=== PATIENT | female | born 1960 | race Caucasian/White ===

== ENCOUNTER 2018-04-24 08:43 | Day surgery (SDC) | payer BC ==
[2018-04-24] VITALS (11 sets, daily range): BP systolic 109–135; BP diastolic 63–72; PULSE 57–74; RESP 10–18; Ht 157.5 cm; Wt 66.4 kg
[~2018-04-24] VITALS: Ht 157.5 cm; Wt 66.4 kg
[~2018-04-24 08:43] MED LIST: LACTATED RINGER'S 1,000 ML IV SCH; SEVOFLURANE 15 MIN ONE
[2018-04-24] MEDS ORDERED: LEVO88TA42 PO (09:47)
[2018-04-24] MEDS ORDERED: TRAM50TA PO (09:48)
--- NOTE | 2018-04-24 10:37 | PREAC ---
Date/Time of Note Date/Time of Note DATE: 04/24/18 TIME: 10:37 Anesthesia Eval and Record Evaluation Time Pre-Procedure Interview DATE: 04/24/18 TIME: 10:37 Age 57 Sex female NPO: 8 hrs Preoperative diagnosis d/c Planned procedure d/c Past Medical History Past Medical History: Includes Endo: Hypothyroid Surgery & Anesthesia Issues No known issue Meds Anticoagulation: No Beta Ambreen within 24 hr: No Reason Beta Ambreen not given: Pt. not on B-Ambreen Reported Medications Tramadol Hcl* (Ultram*) 50 Mg Tablet, 50 MG PO Q6H PRN for PAIN, TAB 04/24/18 Levothyroxine Sodium* (Levoxyl*) 88 Mcg Tablet, 88 MCG PO BEFORE BREAKFAST, #30 TAB 04/24/18 Current Medications Lactated Ringer's 1,000 ml @ 25 mls/hr Q24H IV ; Start 04/24/18 at 08:00 Meds reviewed: Yes Allergies Coded Allergies: No Known Allergy (Unverified , 04/24/18) Allergies Reviewed: Yes Labs/Studies Labs Reviewed: Reviewed by anesthesiologist Result Diagram: 04/24/18 0950 Laboratory Tests 04/24/18 09:50 Blood Bank Test 04/24/18 09:50 Blood Type A POSITIVE test: N/A Pre-procedure Exam Last vitals Vital Signs Date Temp Pulse Resp B/P (MAP) Pulse Ox O2 O2 Flow FiO2 Time Delivery Rate 04/24/18 97.6 70 18 135/63 99 Room Air 10:07 (87) Airway: Adequate mouth opening, Adequate thyromental dist Mallampati: Mallampati III Teeth: Normal Lung: Normal Heart: Normal ASA Physical Status ASA physical status: 2 Emergency: None Pre-operative Attestations Prior to commencing anesthesia and surgery, the patient was re-evaluated, there was verification of: *The patient's identity *The results of appropriate recent lab work and preoperative vital signs *The above evaluation not changing prior to induction *Anesthetic plan, risk benefits, alternative and complications discussed with patient/family; questions answered; patient/family understands, accepts and wishes to proceed. MATT MONZON DO Apr 24, 2018 10:37
[2018-04-24] MEDS ORDERED: PROPOFOL 20 ML ONE (10:40)
[2018-04-24] MEDS ORDERED: ETOMIDATE 20 MG INJ ONE (10:40)
[2018-04-24] MEDS ORDERED: LIDOCAINE 1% (MDV) 20 ML INJ ONE (10:40)
[2018-04-24] MEDS ORDERED: MIDAZOLAM 1 MG/ML 2 ML INJ ONE (10:40)
[2018-04-24] MEDS ORDERED: FENTAnyl 50 MCG/ML VIAL ONE (10:54)
[2018-04-24] MEDS ORDERED: ONDANSETRON 4 MG INJ ONE (10:55)
[2018-04-24] MEDS ORDERED: CEFAZOLIN 1 GM INJ ONE (10:55)
--- NOTE | 2018-04-24 11:38 | PAC ---
Date/Time of Note Date/Time of Note DATE: 04/24/18 TIME: 11:37 Post-Anesthesia Notes Post-Anesthesia Note Last documented vital signs Vital Signs Date Temp Pulse Resp B/P (MAP) Pulse Ox O2 O2 Flow FiO2 Time Delivery Rate 04/24/18 98 70 15 125/62 99 Room Air 1138 Activity: WNL Respiratory function: WNL Cardiovascular function: WNL Mental status: Baseline Pain reasonably controlled: Yes Hydration appropriate: Yes Nausea/Vomiting absent: Yes MATT MONZON DO Apr 24, 2018 11:38
--- NOTE | 2018-04-24 11:39 | SIPON ---
Date/Time of Note Date/Time of Note DATE: 04/24/18 TIME: 11:37 Operative Report Preoperative Diagnosis Postmenopausal bleeding Postoperative Diagnosis Same, cervical stenosis Operation/Procedure Performed Exam under anesthesia, ECC Surgeon Dianna Hinton MD medical practice assistant None Anesthesia: general Estimated blood loss: minimal Transfusion Required none Specimen ECC Grafts/Implants none Complications none DIANNA HINTON MD Apr 24, 2018 11:39
--- NOTE | 2018-04-24 11:51 | PREOPHP ---
DATE OF ADMISSION: 04/24/2018 HISTORY OF PRESENT ILLNESS: A 57-year-old female 5, para 3, AB 2, admitted with history of p ostmenopausal bleeding. PAST MEDICAL HISTORY: Hypothyroidism and arthritis. PAST SURGICAL HISTORY: section. ALLERGIES: No known allergies. FAMILY HISTORY: Noncontributory. PHYSICAL EXAMINATION: VITAL SIGNS: The patient is afebrile. Vital signs stable. HEAD, NECK AND CHEST: Within normal limits. ABDOMEN: Soft, nontender, nondistended. PELVIC: Normal. EXTREMITIES: Within normal limits. NEUROLOGIC: Within normal limits. IMPRESSION: Postmenopausal bleeding. PLAN: Dilation and curettage. Risks, benefits and alternatives of procedure were explained to the p atient. Patient said she understood and gave informed consent for the procedure. Dictated By: DIANNA HERNANDEZ/NO Conf#: [id number] DID#: [id number]
[2018-04-24] MEDS ORDERED: HYDROmorphONE 1 MG/5 ML IV SYRINGE IV PRN ×2 (12:00)
--- NOTE | 2018-04-24 12:00 | NUR ---
pacu notes: handoff report to pacu conveyor line battery charger for continuity of care.
--- NOTE | 2018-04-24 12:22 | OPR ---
DATE OF OPERATION: 04/24/2018 PREOPERATIVE DIAGNOSIS: Postmenopausal bleeding. POSTOPERATIVE DIAGNOSES: Postmenopausal bleeding and cervical stenosis. OPERATION PERFORMED: Examination under anesthesia, endocervical curettage. SURGEON: Dianna Balbuena MD ANESTHESIA: General. ANESTHESIOLOGIST: Jordan Jackman DO DESCRIPTION OF PROCEDURE: The patient was taken to the operating room, placed on the operating table in supine position. After adequate general anesthesia was given, the patient was placed in dorsal lithotomy position. A tenaculum was used to grasp the anterior lip of the cervix. Using Kevorkian curet, endocervical curettage was performed. This specimen was obtained and was sent to pathology. Next, the cervical os was noted to be severely stenosed and attempts were made to dilate the cervix; however due to cervical stenosis, the cervix could not to be dilated. All the instruments were removed. Adequate hemostasis was assured. The patient tolerated the procedure well. The patient was awakened from anesthesia and transferred to recovery room in stable condition. Estimated blood loss was minimal. All counts were correct. Dictated By: DIANNA HERNANDEZ/NO Conf#: [id number] DID#: [id number] MTDD
--- NOTE | 2018-04-24 12:42 | NUR ---
Pt was discharge home, no complains of pain, VS nyla. No s/s of bleeding. Pt tolerated food. All discharge instructions provided to pt and family. pt and family verbalize understanding and readiness for discharge.
== END 2018-04-24 12:47 | disposition home or self-care (01) ==
LOC: SDS 08:43
PROVIDERS: ATTEND Obstetrics & Gynecology
DX: N95.0 Postmenopausal bleeding (principal); E03.9 Hypothyroidism, unspecified
CPT/HCPCS: 58120; 71045; 80053; 85025; 86850; 86900; 86901; 88305; 93005; J0690; J1170; J2250; J3010; Z7610; J2405

== ENCOUNTER 2018-06-08 06:06 | Day surgery (SDC) | payer BC ==
[~2018-06-08] VITALS: Ht 154.9 cm; Wt 65.7 kg
[2018-06-08] VITALS (11 sets, daily range): BP systolic 118–139; BP diastolic 68–75; PULSE 60–69; RESP 18–24; Ht 154.9 cm; Wt 65.7 kg
[~2018-06-08 06:06] MED LIST changes: -LACTATED RINGER'S 1,000 ML IV SCH; +LEVO88TA42 PO; -SEVOFLURANE 15 MIN ONE; +TRAM50TA PO
[2018-06-08] MEDS ORDERED: CEFAZOLIN 2 GM/50 ML (PMX) 50 ML IVPB SCH (07:00)
[2018-06-08] MEDS ORDERED: SOD CHLORIDE 0.9% 1,000 ML IV SCH (07:00)
[2018-06-08] MEDS ORDERED: BUPIVACAINE 0.25% (MPF) 30 ML INJ ONE (07:37)
--- NOTE | 2018-06-08 08:05 | PREAC ---
Date/Time of Note Date/Time of Note DATE: 06/08/18 TIME: 08:03 Anesthesia Eval and Record Evaluation Time Pre-Procedure Interview DATE: 06/08/18 TIME: 08:03 Age 57 Sex female NPO: 8 hrs Preoperative diagnosis Cholelithiasis Planned procedure Lap Cholecystectomy Past Medical History Past Medical History: Includes Endo: Hypothyroid GI: Morbid obesity Surgery & Anesthesia Issues No known issue Meds Anticoagulation: No Beta Ambreen within 24 hr: No Reason Beta Ambreen not given: Pt. not on B-Ambreen Reported Medications Tramadol Hcl* (Ultram*) 50 Mg Tablet, 50 MG PO Q6H PRN for PAIN, TAB 04/24/18 Levothyroxine Sodium* (Levoxyl*) 88 Mcg Tablet, 88 MCG PO BEFORE BREAKFAST, #30 TAB 04/24/18 Current Medications Cefazolin Sodium/ Dextrose 50 ml @ 100 mls/hr OC IVPB ; Start 06/08/18 at 07:00 Sodium Chloride 1,000 ml @ 75 mls/hr [id number] IV ; Start 06/08/18 at 07:00 Meds reviewed: Yes Allergies Coded Allergies: No Known Allergy (Unverified , 06/08/18) Allergies Reviewed: Yes Labs/Studies Labs Reviewed: Reviewed by anesthesiologist test: Negative Studies: ECG Pre-procedure Exam Last vitals Vital Signs Date Temp Pulse Resp B/P (MAP) Pulse Ox O2 O2 Flow FiO2 Time Delivery Rate 06/08/18 98.1 68 18 118/71 98 Room Air 07:26 (87) Airway: Adequate mouth opening, Adequate thyromental dist Mallampati: Mallampati II Teeth: Normal Lung: Normal Heart: Normal ASA Physical Status ASA physical status: 2 Emergency: None Planned Anesthetic General/MAC: ETT Planned Pain Management Single shot nerve block, Parenteral pain med, Local by surgeon Pre-operative Attestations Prior to commencing anesthesia and surgery, the patient was re-evaluated, there was verification of: *The patient's identity *The results of appropriate recent lab work and preoperative vital signs *The above evaluation not changing prior to induction *Anesthetic plan, risk benefits, alternative and complications discussed with patient/family; questions answered; patient/family understands, accepts and wishes to proceed. FREDRICK CONNOR MD Jun 08, 2018 08:05
[2018-06-08] MEDS ORDERED: MIDAZOLAM 1 MG/ML 2 ML INJ ONE (08:20)
[2018-06-08] MEDS ORDERED: LIDOCAINE 2% (SDV) 5 ML INJ ONE (09:02)
[2018-06-08] MEDS ORDERED: GLYCOPYRROLATE 0.4 MG INJ ONE (09:02)
[2018-06-08] MEDS ORDERED: ROCURONIUM 50 MG INJ ONE (09:02)
[2018-06-08] MEDS ORDERED: NEOSTIGMINE 10 MG INJ ONE (09:02)
[2018-06-08] MEDS ORDERED: PROPOFOL 20 ML ONE (09:02)
[2018-06-08] MEDS ORDERED: ONDANSETRON 4 MG INJ ONE (09:03)
[2018-06-08] MEDS ORDERED: CEFAZOLIN 1 GM INJ ONE (09:11)
--- NOTE | 2018-06-08 09:15 | OPR ---
Date/Time of Note Date/Time of Note DATE: 06/08/18 TIME: 09:13 Operative Report Procedure Date: Jun 08, 2018 Preoperative Diagnosis symptomatic gallstones Postoperative Diagnosis same Operation/Procedure Performed 1. laparoscopic cholecystectomy 2. therapeutic injection of subcutaneous local anesthesia Surgeon see signature line Pullboat Engineer Jose Alfredo Henry Anesthesia Type: general Estimated Blood Loss: 0 - 10 ml's Transfusion none Specimen gallbladder Grafts/Implants none Complications none Pt Condition Post Procedure: stable Indications This is a 57-year-old female with some tender gallstones. She required surgical excision of her gallbladder. Risks alternatives benefits and percent were discussed the patient. Patient expressed understanding and consents to the operation. Procedure Description Patient is taken to the OR and prepped and draped in usual sterile fashion. Surgical time was performed. IV antibiotics were given. Infraumbilical incision was made transversely with a 15 blade. Dissection with cautery carried onto the fascia. The fascia was grasped with [place]'s and divided with curved Bui scissors. 0 Vicryl U stitch was placed into the fascia. Sam trocar was introduced. Pneumoperitoneum is established. Midepigastric 12 mm optical trochars placed under direct position. Right upper quadrant upper flank 5 mm optical trochars were placed under direct visualization. Upon initial inspection there is adhesions to the gallbladder showing chronic cholecystitis. These were taken down bluntly with [place] graspers. The gallbladder was grasped by the fundus and retracted in a lateral cephalad direction. [place] graspers were used to dissect out and isolate the cystic duct and cystic artery bluntly. The critical view was established. The cystic duct is divided with 3 clips proximal 1 clip distal. The duct is divided with laparoscopic scissors. The cystic artery was divided with 3 clips proximally clipped distal and the division was performed laparoscopic scissors. The gallbladder was taken off the gallbladder bed. Good hemostasis established in the gallbladder bed. The gallbladder is retrieved using Endo Catch bag. All ports removed under direct visualization. 0 Vicryl assist in the infraumbilical port site is tied down. Skin is closed using skin mary. Therapeutic subcutaneous local anesthesia was injected at the incision site. Dry dressings were applied. Oleg BOB Jun 08, 2018 09:15
--- NOTE | 2018-06-08 09:23 | PAC ---
Date/Time of Note Date/Time of Note DATE: 06/08/18 TIME: 09:22 Post-Anesthesia Notes Post-Anesthesia Note Last documented vital signs Vital Signs Date Temp Pulse Resp B/P (MAP) Pulse Ox O2 O2 Flow FiO2 Time Delivery Rate 06/08/18 98.0 09:01 06/08/18 68 18 118/71 98 Room Air 07:26 (87) Activity: WNL Respiratory function: WNL Cardiovascular function: WNL Mental status: Baseline Pain reasonably controlled: Yes Hydration appropriate: Yes Nausea/Vomiting absent: Yes Comments BP:134/67, P:74, Spo2:100%, T:98,8 FREDRICK CONNOR MD Jun 08, 2018 09:23
[2018-06-08] MEDS ORDERED: HYDROCODONE/APAP (5/325) TAB PO ONE (09:30)
[2018-06-08] MEDS ORDERED: DIPHENHYDRAMINE 50 MG INJ IV PRN (09:30)
[2018-06-08] MEDS ORDERED: HYDROmorphONE 1 MG/5 ML IV SYRINGE IV PRN ×2 (09:30)
[2018-06-08] MEDS ORDERED: ONDANSETRON 4 MG INJ IV PRN (09:30)
[2018-06-08] MEDS ORDERED: FENTAnyl 50 MCG/ML VIAL IV PRN (09:30)
[2018-06-08] MEDS ORDERED: KETOROLAC 30 MG INJ IV PRN (09:30)
[2018-06-08] MEDS ORDERED: hydrALAzine 20 MG INJ IV PRN (09:30)
[2018-06-08] MEDS ORDERED: MEPERIDINE 25 MG INJ IV PRN (09:30)
[2018-06-08] MEDS ORDERED: LABETALOL HCL 20MG INJ IV PRN (09:30)
[2018-06-08] MEDS ORDERED: METOCLOPRAMIDE 10 MG INJ IV PRN (09:30)
== END 2018-06-08 11:50 | disposition home or self-care (01) ==
LOC: SDS 06:06
PROVIDERS: ATTEND Surgery
DX: K80.10 Calculus of gallbladder with chronic cholecystitis without obstruction (principal); E03.9 Hypothyroidism, unspecified
CPT/HCPCS: 47562; 88304; J0690; J2250; J2405; J2710; J3010; Z7512; Z7610